=== PATIENT | male | born 1985 | race African-American/Black ===

== ENCOUNTER → 2016-11-29 | Outpatient (CLI) | payer OTHER ==
--- NOTE | 2016-12-06 09:37 | REP ---
Clinical: Pain with recent trauma/fall. Technique: Axial images through the left shoulder with coronal and sagittal re-formations in the plane of the scapula. Findings: The osseous structures are intact. There is no evidence for acute fracture dislocation. The acromioclavicular and glenohumeral joints are normal in appearance. There is no evidence for subluxation or dislocation. No overt osteoarthritic degenerative changes are appreciated. No periarticular calcifications. Surrounding musculoskeletal structures and soft tissues are normal. Impression: Normal left shoulder radiographs. No evidence for acute fracture or dislocation. No obvious injury. Signed by Bruce Boothe MD 12/06/2016 09:28 A
== END ==
LOC: M RAD 15:19
PROVIDERS: ATTEND Physician Assistant
DX: M25.512 Pain in left shoulder (principal)

== ENCOUNTER → 2016-12-20 | Outpatient (RCR) | payer OTHER | LOC: M PT 14:34 | PROVIDERS: ATTEND Physician Assistant | DX: Z51.89 Encounter for other specified aftercare (principal); M25.512 Pain in left shoulder ==

== ENCOUNTER → 2017-01-19 | Outpatient (RCR) | payer OTHER | LOC: M PT 12-27 14:28 | PROVIDERS: ATTEND Physician Assistant | DX: Z51.89 Encounter for other specified aftercare (principal); M25.512 Pain in left shoulder ==

== ENCOUNTER 2017-02-05 14:39 | Outpatient (RCR) | payer OTHER | END 2017-02-19 | LOC: M PT 14:39 | PROVIDERS: ATTEND Physician Assistant | DX: Z51.89 Encounter for other specified aftercare (principal); M25.512 Pain in left shoulder ==